=== PATIENT | male | born 2000 | race Caucasian/White ===

== ENCOUNTER 2022-11-18 22:34 | Emergency (ER) | payer OTHER ==
[2022-11-18 22:58] LABS: BASOPHILS ABSOLUTE AUTO 0.06 K/uL (0.00-0.10); BASOPHILS PERCENT AUTO 0.7 % (0.1-1.3); EOSINOPHILS ABSOLUTE AUTO 0.15 K/uL (0.00-0.40); EOSINOPHILS PERCENT AUTO 1.6 % (0.0-5.4); HEMATOCRIT 39.4 % (38.4-49.7); HEMOGLOBIN 14.2 g/dL (12.9-16.9); IMMATURE GRAN PERCENT AUTO 0.2 % (0.0-0.7); LYMPHOCYTES ABSOLUTE AUTO 2.25 K/uL (0.8-3.3); LYMPHOCYTES PERCENT AUTO 24.7 % (11.4-47.7); MEAN CORPUSCULAR HEMOGLOBIN 31.1 pg (31.6-35.5); MEAN CORPUSCULAR VOLUME 86.4 fL (81.4-99.0); MONOCYTES ABSOLUTE AUTO 0.77 K/uL (0.20-0.90); MONOCYTES PERCENT AUTO 8.5 % (3.3-12.6); NEUTROPHILS ABSOLUTE AUTO 5.86 K/uL (1.0-7.6); NEUTROPHILS PERCENT AUTO 64.3 % (40.0-78.1); PLATELET COUNT,PLT 223 K/uL (130-375); RED BLOOD CELL COUNT 4.56 M/uL (4.14-5.76); WHITE BLOOD CELL COUNT,WBC 9.1 K/uL (3.2-11.0)
[2022-11-18 23:02] LABS: IMMATURE GRAN ABSOLUTE AUTO 0.02 K/uL (0.00-0.23)
[2022-11-18 23:28] LABS: CALCIUM 9.5 mg/dL (8.5-10.1); CREATININE 1.1 mg/dL (0.8-1.3); EST CRCL DRUG DOSING (CG) 113.91 mL/min; POTASSIUM,K 3.9 mmol/L (3.6-5.2); TROPONIN I HIGH SENSITIVITY 4.4 pg/mL (<=60.3); TSH ULTRASENSITIVE 4.976 uIU/mL (0.358-3.740)
[2022-11-18 23:29] LABS: ANION GAP 12.9 mmol/L (5.0-14.0)
== END 2022-11-19 00:16 | disposition home or self-care (01) ==
LOC: JP.ED 22:34
DX: I49.3 Ventricular premature depolarization (principal)
CPT/HCPCS: 36415; 80048; 83735; 84443; 84484; 85025; 93005; 93010; 99283; 99285